=== PATIENT | female | born 1965 | race Caucasian/White ===

== ENCOUNTER 2017-02-17 11:48 | Emergency (ER) | payer MEDICAID ==
[~2017-02-17] VITALS: Ht 162.6 cm; Wt 72.1 kg
[2017-02-17 14:07] LABS: CALCIUM 8.6 mg/dL (8.5-10.1); CARBON DIOXIDE 22.2 mmol/L (21-32); CHLORIDE SERUM 99 mmol/L (98-107); CREATININE SERUM 0.8 mg/dL (0.6-1.0); GFR1 > 60 mL/min; GLUCOSE SERUM 323 mg/dL (74-106); POTASSIUM SERUM 4.7 mmol/L (3.5-5.1); SODIUM SERUM 134 mmol/L (136-145)
[2017-02-17 15:48] VITALS: BP 154/79
== END 2017-02-17 14:50 | disposition home or self-care (01) ==
LOC: ED 11:48
PROVIDERS: Specialist
DX: F43.0 Acute stress reaction (principal); E11.65 Type 2 diabetes mellitus with hyperglycemia
CPT/HCPCS: 36600; J1885; J2001; J2250; J3010; J3490; J7030

== ENCOUNTER 2018-01-05 14:59 | Inpatient (IN) | payer MEDICAID ==
[~2018-01-05] VITALS: Ht 165.1 cm; Wt 75.9 kg
[2018-01-05 15:20] VITALS: Ht 165.1 cm; Wt 75.9 kg
[2018-01-05 16:57] LABS: BASOPHIL % 0.7 % (0-2); PLATELET COUNT 291 x10^3mcL (130-400)
[2018-01-05 17:01] LABS: CALCIUM 8.2 mg/dL (8.5-10.1); CARBON DIOXIDE 29.3 mmol/L (21-32); CHLORIDE SERUM 103 mmol/L (98-107); CREATININE SERUM 0.6 mg/dL (0.6-1.0); GFR1 > 60 mL/min; GLUCOSE SERUM 258 mg/dL (74-106); POTASSIUM SERUM 3.8 mmol/L (3.5-5.1); SODIUM SERUM 138 mmol/L (136-145)
[2018-01-05] MEDS ORDERED: LANTUS SOLOS100 U/M1 SQ (17:02)
[2018-01-05] MEDS ORDERED: METFORMIN HCL1000 MG PO (17:02)
[2018-01-05 17:06] LABS: ALKALINE PHOSPHATASE 94 U/L (46-116); ALT/SGPT 21 U/L (14-59); AST/SGOT 18 U/L (15-37); TOTAL PROTEIN, SERUM 6.6 g/dL (6.4-8.2)
[2018-01-05 17:07] LABS: ALBUMIN 3.3 g/dL (3.4-5.0)
[2018-01-05 17:13] LABS: RED CELL DISTRIBUTION WIDTH 22.8 % (11.5-14.5)
[2018-01-05 17:14] LABS: rbc morphology (normal/abnorm) ABNORMAL (NORMAL)
[2018-01-05 18:04] VITALS: BP 143/78
[2018-01-05 20:11] LABS: microscopic required? NO
[2018-01-05 20:16] LABS: UA SPECIFIC GRAVITY 1.015 (1.005-1.035); urine erythrocyte NEGATIVE (NEGATIVE)
[2018-01-05 20:26] LABS: AMPHETAMINE QUAL UR NONE DETECTED (NEG <=1000)
[2018-01-05 21:07] LABS: MAGNESIUM 1.8 mg/dL (1.8-2.4); PHOSPHOROUS 3.2 mg/dL (2.5-4.9)
[2018-01-05 21:12] LABS: T3 TOTAL 0.89 ng/mL
[2018-01-05 21:14] LABS: CHOLESTEROL/HDL RATIO 2.4
[2018-01-05 21:40] LABS: FREE T4 0.9 ng/dL (0.76-1.46); FREE THYROXINE INDEX 2.1 ug/dL (1.4-4.5); T4(THYROXINE) 6.1 ug/dL (4.7-13.3)
[2018-01-05 21:54] VITALS: BP 137/73
[2018-01-05 22:00] LABS: TOTAL IRON BINDING CAPACITY 336 ug/dL (250-450)
[2018-01-05 22:01] LABS: IRON 17 ug/dL (50-170)
[2018-01-05 22:16] LABS: RED BLOOD CELLS 4.87 M/mm3 (4.10-5.10)
[2018-01-06 05:56] VITALS: BP 123/66
[2018-01-06 09:00] VITALS: BP 143/83
[2018-01-06 09:11] LABS: BASOPHIL % 0.5 % (0-2); PLATELET COUNT 284 x10^3mcL (130-400); RED CELL DISTRIBUTION WIDTH 24.1 % (11.5-14.5)
[2018-01-06 09:25] LABS: CALCIUM 8.2 mg/dL (8.5-10.1); CARBON DIOXIDE 28.7 mmol/L (21-32); CHLORIDE SERUM 104 mmol/L (98-107); CREATININE SERUM 0.6 mg/dL (0.6-1.0); GFR1 > 60 mL/min; GLUCOSE SERUM 148 mg/dL (74-106); MAGNESIUM 1.7 mg/dL (1.8-2.4); PHOSPHOROUS 4.8 mg/dL (2.5-4.9); SODIUM SERUM 138 mmol/L (136-145)
[2018-01-06 09:45] VITALS: BP 134/73
[2018-01-06 13:45] VITALS: BP 142/65
[2018-01-06] MEDS ORDERED: LEVEMIR100 U/M1 SC (16:37)
[2018-01-06 17:09] VITALS: BP 142/65
== END 2018-01-06 18:13 | disposition home or self-care (01) | DRG 243 ==
LOC: ED 14:59 → DU 16:54
PROVIDERS: Emergency Medicine Emergency Medical Services; Family Medicine
DX: K21.9 Gastro-esophageal reflux disease without esophagitis (principal); E44.0 Moderate protein-calorie malnutrition; M94.0 Chondrocostal junction syndrome [Tietze]; I10 Essential (primary) hypertension; E11.65 Type 2 diabetes mellitus with hyperglycemia; D64.9 Anemia, unspecified; Z98.891 History of uterine scar from previous surgery; Z68.29 Body mass index [BMI] 29.0-29.9, adult
CPT/HCPCS: 82962; 83880; 84439; 85378; J1815; J7030; Q0092

== ENCOUNTER 2018-02-15 08:47 | Emergency (ER) | payer MEDICAID ==
[~2018-02-15] VITALS: Ht 165.1 cm; Wt 75.3 kg
[~2018-02-15 08:47] MED LIST: LANTUS SOLOS100 U/M1 SQ; LEVEMIR100 U/M1 SC; METFORMIN HCL1000 MG PO
[2018-02-15 08:53] VITALS: Ht 165.1 cm; Wt 75.3 kg
[2018-02-15 09:51] VITALS: BP 111/67
== END 2018-02-15 09:51 | disposition home or self-care (01) ==
LOC: ED 08:47
DX: S20.219A Contusion of unspecified front wall of thorax, initial encounter (principal); S80.02XA Contusion of left knee, initial encounter; S80.01XA Contusion of right knee, initial encounter; S90.01XA Contusion of right ankle, initial encounter; S09.90XA Unspecified injury of head, initial encounter; I10 Essential (primary) hypertension; E11.9 Type 2 diabetes mellitus without complications; V63.6XXA Passenger in heavy transport vehicle injured in collision with car, pick-up truck or van in traffic accident, initial encounter; Y93.I9 Activity, other involving external motion; Y92.89 Other specified places as the place of occurrence of the external cause; Y99.8 Other external cause status

== ENCOUNTER 2019-08-06 23:54 | Inpatient (IN) | payer MEDICAID ==
[~2019-08-06] VITALS: Ht 160 cm; Wt 82.7 kg
[2019-08-06 23:59] VITALS: Ht 160 cm; Wt 82.7 kg
[2019-08-07 01:09] LABS: BASOPHIL % 0.1 % (0-2); PLATELET COUNT 223 x10^3mcL (130-400)
[2019-08-07 01:10] LABS: CALCIUM 8.3 mg/dL (8.5-10.1); CARBON DIOXIDE 27.6 mmol/L (21-32); CHLORIDE SERUM 105 mmol/L (98-107); CREATININE SERUM 0.9 mg/dL (0.6-1.0); GFR1 > 60 mL/min; GLUCOSE SERUM 171 mg/dL (74-106); POTASSIUM SERUM 4.2 mmol/L (3.5-5.1); SODIUM SERUM 140 mmol/L (136-145)
[2019-08-07 01:13] LABS: RED CELL DISTRIBUTION WIDTH 19.7 % (11.5-14.5)
[2019-08-07 01:15] LABS: ALBUMIN 3.4 g/dL (3.4-5.0); ALKALINE PHOSPHATASE 92 U/L (46-116); ALT/SGPT 15 U/L (14-59); AST/SGOT 14 U/L (15-37); BILIRUBIN TOTAL 0.17 mg/dL (0.20-1.00); TOTAL PROTEIN, SERUM 7.1 g/dL (6.4-8.2); rbc morphology (normal/abnorm) ABNORMAL (NORMAL)
[2019-08-07] MEDS ORDERED: RELION HUMUL100 U/M2 (04:22)
[2019-08-07] MEDS ORDERED: LANTUS SOLOS100 U/M1 SC (04:22)
[2019-08-07 04:38] LABS: microscopic required? NO
[2019-08-07 04:43] LABS: UA SPECIFIC GRAVITY <=1.005 (1.005-1.035); urine erythrocyte NEGATIVE (NEGATIVE)
[2019-08-07 05:49] LABS: AMPHETAMINE QUAL UR NONE DETECTED (See below)
[2019-08-07 05:58] VITALS: BP 142/51
[2019-08-07 08:10] VITALS: BP 132/68
[2019-08-07 12:32] LABS: BASOPHIL % 0.5 % (0-2); PLATELET COUNT 216 x10^3mcL (130-400)
[2019-08-07 12:34] VITALS: BP 133/55
[2019-08-07 12:37] LABS: RED CELL DISTRIBUTION WIDTH 22.3 % (11.5-14.5); rbc morphology (normal/abnorm) ABNORMAL (NORMAL)
[2019-08-07 16:30] VITALS: BP 130/51
[2019-08-07 20:45] VITALS: BP 119/57
[2019-08-08 04:57] VITALS: BP 103/54
[2019-08-08 11:48] VITALS: BP 140/69
[2019-08-08] MEDS ORDERED: PROVERA10 MG PO ×2 (13:17→15:20)
[2019-08-08 14:03] VITALS: BP 134/76
== END 2019-08-08 14:44 | disposition home or self-care (01) | DRG 532 ==
LOC: ED 23:54 → DU 08-07 02:13
PROVIDERS: Emergency Medicine; ADMIT General Practice
PROC: 30233N1 Transfusion of Nonautologous Red Blood Cells into Peripheral Vein, Percutaneous Approach (ICD-10-PCS; principal; 2019-08-07)
DX: D25.9 Leiomyoma of uterus, unspecified (principal); E11.8 Type 2 diabetes mellitus with unspecified complications; D62 Acute posthemorrhagic anemia; E83.51 Hypocalcemia; E11.65 Type 2 diabetes mellitus with hyperglycemia; N92.0 Excessive and frequent menstruation with regular cycle; R60.9 Edema, unspecified; E66.9 Obesity, unspecified; Z68.32 Body mass index [BMI] 32.0-32.9, adult; Z79.84 Long term (current) use of oral hypoglycemic drugs; Z79.4 Long term (current) use of insulin
CPT/HCPCS: 82962; 83880; 85378; G0378; J2916; J3490; J7030; J7040; P9016; Q0092; Q0163

== ENCOUNTER 2019-09-08 07:17 | Day surgery (SDC) | payer MEDICAID ==
[~2019-09-08] VITALS: Ht 165.1 cm; Wt 78.0 kg
[~2019-09-08 07:17] MED LIST changes: +LANTUS SOLOS100 U/M1 SC; +PROVERA10 MG PO; +RELION HUMUL100 U/M2
[2019-09-08 08:05] VITALS: BP 167/79
[2019-09-08 08:42] LABS: BASOPHIL % 0.8 % (0-2); PLATELET COUNT 237 x10^3mcL (130-400)
[2019-09-08 08:43] LABS: RED CELL DISTRIBUTION WIDTH 24.7 % (11.5-14.5); rbc morphology (normal/abnorm) ABNORMAL (NORMAL)
[2019-09-08 09:08] LABS: CHLORIDE SERUM 104 mmol/L (98-107); CREATININE SERUM 0.6 mg/dL (0.6-1.0); GFR1 > 60 mL/min; GLUCOSE SERUM 140 mg/dL (74-106); POTASSIUM SERUM 3.9 mmol/L (3.5-5.1); SODIUM SERUM 140 mmol/L (136-145)
[2019-09-08 09:54] LABS: CALCIUM 8.5 mg/dL (8.5-10.1)
[2019-09-08 13:58] VITALS: BP 140/78
== END 2019-09-08 13:35 | disposition home or self-care (01) ==
LOC: DS 07:17 → OR 07:30 → DS 13:35
PROVIDERS: Obstetrics & Gynecology
DX: N85.00 Endometrial hyperplasia, unspecified (principal); E11.9 Type 2 diabetes mellitus without complications; D64.9 Anemia, unspecified; E66.9 Obesity, unspecified; Z79.4 Long term (current) use of insulin; Z79.899 Other long term (current) drug therapy; Z98.891 History of uterine scar from previous surgery; Z68.28 Body mass index [BMI] 28.0-28.9, adult
CPT/HCPCS: 82962; C1758; J0690; J3010; Q0092